=== PATIENT | male | born 1965 | race Caucasian/White ===

== ENCOUNTER 2018-02-16 10:08 | Day surgery (SDC) | END 2018-02-16 14:34 | disposition home or self-care (01) ==

== ENCOUNTER 2018-06-09 10:11 | Day surgery (SDC) | payer BC ==
[~2018-06-09] VITALS: Ht 167.6 cm; Wt 96.4 kg
[~2018-06-09 10:11] MED LIST: ASPI-903 PO; GLIMEPIRIDE; HYDR25TA6 PO; LOSA25TA12 PO; MTF1000T PO
[2018-06-09 11:07] VITALS: Ht 167.6 cm; Wt 96.4 kg
[2018-06-09] MEDS ORDERED: GLIMEPIRIDE (11:12)
[2018-06-09] MEDS ORDERED: LOSARTAN (11:12)
[2018-06-09] MEDS ORDERED: HYDROCHLOROTHIAZIDE (11:12)
[2018-06-09] MEDS ORDERED: ASPIRIN (11:12)
[2018-06-09] MEDS ORDERED: METFORMIN (11:12)
--- NOTE | 2018-06-09 11:42 | PREAC ---
Date/Time of Note Date/Time of Note DATE: 06/09/18 TIME: 11:15 Anesthesia Eval and Record Evaluation Time Pre-Procedure Interview DATE: 06/09/18 TIME: 11:15 Age 53 Sex male NPO: 8 hrs Preoperative diagnosis screening Planned procedure colonoscopy Past Medical History Past Medical History: Includes Cardio: HTN Endo: Diabetes GI: Morbid obesity Surgery & Anesthesia Issues No known issue Meds Anticoagulation: No Beta Santiago within 24 hr: No Reason Beta Santiago not given: Pt. not on B-Santiago Reported Medications [Losartan] No Conflict Check 06/09/18 [Glimepiride] No Conflict Check 06/09/18 [Metformin] No Conflict Check 06/09/18 [Hydrochlorothiazide] No Conflict Check 06/09/18 [Aspirin] No Conflict Check 06/09/18 Aspirin* (Aspirin* Chew) 81 Mg Tab.chew, 81 MG PO DAILY, TAB.CHEW 02/16/18 [Glimepiride Daily] No Conflict Check 02/16/18 Metformin* (Glucophage*) 1,000 Mg Tablet, 1000 MG PO DAILY, #30 TAB 02/16/18 Hydrochlorothiazide* (Hydrochlorothiazide*) 25 Mg Tab, 25 MG PO DAILY, #30 TAB 02/16/18 Losartan Potassium* (Losartan Potassium*) 25 Mg Tablet, 15 MG PO DAILY, TAB 02/16/18 Meds reviewed: Yes Allergies Coded Allergies: No Known Drug Allergies (Verified Allergy, Unknown, 02/16/18) Allergies Reviewed: Yes Labs/Studies Labs Reviewed: Reviewed by anesthesiologist test: N/A Pre-procedure Exam Airway: Adequate mouth opening, Adequate thyromental dist Mallampati: Mallampati II Teeth: Normal Lung: Normal Heart: Normal ASA Physical Status ASA physical status: 3 Emergency: None Pre-operative Attestations Prior to commencing anesthesia and surgery, the patient was re-evaluated, there was verification of: *The patient's identity *The results of appropriate recent lab work and preoperative vital signs *The above evaluation not changing prior to induction *Anesthetic plan, risk benefits, alternative and complications discussed with patient/family; questions answered; patient/family understands, accepts and wishes to proceed. CLARITA IRWIN DO Jun 09, 2018 11:26
[2018-06-09 11:43] VITALS: BP 135/81; PULSE 78; RESP 23
[2018-06-09] MEDS ORDERED: PROPOFOL 40 ML ONE (11:45)
[2018-06-09] MEDS ORDERED: PROPOFOL 200 MG INJ ONE (11:45)
[2018-06-09] MEDS ORDERED: LIDOCAINE 2% (SDV) 5 ML INJ ONE (11:45)
[2018-06-09 12:30] VITALS: BP 123/71; PULSE 81; RESP 13
--- NOTE | 2018-06-09 12:37 | PAC ---
Date/Time of Note Date/Time of Note DATE: 06/09/18 TIME: 12:37 Post-Anesthesia Notes Post-Anesthesia Note Last documented vital signs 120/75 75 18 100% Activity: WNL Respiratory function: WNL Cardiovascular function: WNL Mental status: Baseline Pain reasonably controlled: Yes Hydration appropriate: Yes Nausea/Vomiting absent: Yes CLARITA IRWIN DO Jun 09, 2018 12:37
== END 2018-06-09 14:03 | disposition home or self-care (01) ==
LOC: GIL 10:11
PROVIDERS: ATTEND Internal Medicine Gastroenterology
DX: Z12.11 Encounter for screening for malignant neoplasm of colon (principal); K64.8 Other hemorrhoids; I10 Essential (primary) hypertension; E11.9 Type 2 diabetes mellitus without complications; E66.01 Morbid (severe) obesity due to excess calories; Z68.34 Body mass index [BMI] 34.0-34.9, adult
CPT/HCPCS: 45378; 82962; Z7610